=== PATIENT | male | born 1935 | race Caucasian/White ===

== ENCOUNTER → 2017-07-16 | Outpatient (CLI) | payer OTHER ==
[~2017-07-16] VITALS: Ht 170.2 cm; Wt 68.0 kg
[~2017-07-16] MED LIST: AMLO5TAB2 PO; ASPI325T8 PO; ATOR20TA58 PO; BISA10SU55 RC; CARV12.5 PO; GUAI118L3 PO; LIDOCAINE 1% / SOD BICARB 8.4% 20 ML VIAL. IJ ONE; MAGN400O7 PO; PRAV10TA2 PO; RAMI10CA PO
[2017-07-16 08:54] LABS: INR 1.1 (0.8-1.1); PROTHROMBIN TIME PATIENT 13.2 SEC (11.7-14.0)
[2017-07-16 08:58] VITALS: BP 120/78
--- NOTE | 2017-07-16 09:53 | RAD ---
Ultrasound-guided biopsy of left submandibular mass 07/16/2017 Indication: Left lingular mass possibly arising from the inferior parotid gland or submandibular gland. Adenopathy is also possible. Discussion: The risks and benefits of the procedure were discussed the patient. Informed consent was obtained. A timeout procedure was performed. The left neck was prepped and draped in sterile barrier technique. 1% lidocaine without epinephrine was demonstrated to the skin and subcutaneous tissues. Under direct ultrasound guidance 20-gauge biopsy needle was advanced to the mass. Multiple core biopsy samples were obtained and divided amongst formalin and RPMI fluid. Manual pressure was held. Sterile dressing was applied. No immediate complications were identified. Impression: Ultrasound-guided biopsy of left submandibular mass.
--- NOTE | 2017-07-23 16:30 | PATHOLOGY ---
PATHOLOGY REPORT * * * * * * * * FINAL DIAGNOSIS: Left neck mass needle biopsy: - DIFFUSE LARGE B-CELL LYMPHOMA. SEE COMMENT. COMMENT: Sections of the left neck mass needle biopsy reveal a malignant neoplasm. The malignant cells are present in solid nests and sheets. The malignant cells are relatively large and have modest amounts of eosinophilic cytoplasm. The malignant cells possess enlarged rounded, ovoid, and slightly irregular nuclei containing prominent nucleoli. There are scattered admixed small lymphocytes. Mitotic figures are present. There is no evidence of glandular or squamous differentiation. A portion of the biopsy is submitted for marker studies by flow cytometry and has a viability of 97.3%. Lymphocytes comprise 96.1% of total cells. T-cells comprise 28.3% of cells and show a CD4/CD8 ratio of 1.5. There is an abnormal population of monoclonal B-cells comprising 60% of cells positive for CD10, CD19, CD20 (predominant), CD23, CD11C (predominant) and showing surface lambda light chain restriction. There is no significant expression of CD5. A predominant large cell component is present by forward scatter features. To confirm flow cytometric findings and characterize the target cells in a tissue architectural context, a panel of immunohistochemical stains is performed and yields the following results: AE1/AE3: tumor cells negative S-100: tumor cells negative CD20: tumor cells positive CD3: tumor cells negative; population of scattered admixed small lymphocytes positive CD5: tumor cells negative; population of scattered admixed small lymphocytes positive CD10: tumor cells positive BCL2: tumor cells positive BCL6: tumor cells positive MUM1: tumor cells negative Cyclin D1: tumor lacks diffuse nuclear reactivity CD30: tumor cells negative Ki-67: tumor shows proliferation index of 50-70% The morphologic and immunophenotypic findings are 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 The case is also examined by Dr. Belen London, who concurs with the diagnosis. (JPM:/asim; 07/23/2017) Special Stains Performed: Immunoperoxidase stain for CD20, CD3, AE1/AE3, S-100 (A1), BCL1, BCL2, BCL6, MUM1, Ki-67, CD30, CD10 and CD5 REPORT ELECTRONICALLY SIGNED BY: Magnus Maldonado M.D. DATE/TIME: 07/23/2017 16:29 * * * * * * * * GROSS PATHOLOGY: The specimen is received in formalin, labeled "Emely Whitley, left neck mass," and consists of four artis needle core biopsies measuring between 0.3 x 0.1 x 0.1 cm and 1.1 x 0.1 x 0.1 cm. They are submitted in cassette A1. (SDY; 07/16/2017) INITIAL CPT CODE(S): A; 33989, 52073, 00406, 14237, 19697, 97119, 85918, 40871, 82331, 49160, 43754, 09956, 76456, 40607 Professional services [place] [place] [address] Technical services performed by [facility] at [address] [place] [address], [facility] [address] [place] [address]. Jeremi Taylor fax: [phone] SPECIMEN(S) RECEIVED: A.Left neck mass CLINICAL HISTORY: Left neck mass inferior and anterior to parotid measuring 3.5-4.0 cm. PATIENT: EMELY WHITLEY /AGE: 6 1935 (Age: 82) PATIENT #: [id number] ALT CASE #: SPECIMEN COLLECTION DATE: 07/16/2017 SPECIMEN RECEIVED DATE: 07/16/2017 [facility] - [address] [place] [address] - PHONE: [phone] * * * END OF REPORT * * *
== END | disposition home or self-care (01) ==
LOC: INTRAD 08:06
PROVIDERS: ATTEND Otolaryngology
DX: C85.81 Other specified types of non-Hodgkin lymphoma, lymph nodes of head, face, and neck (principal); K11.8 Other diseases of salivary glands; E78.00 Pure hypercholesterolemia, unspecified; I10 Essential (primary) hypertension; M19.91 Primary osteoarthritis, unspecified site; Z86.69 Personal history of other diseases of the nervous system and sense organs; Z87.39 Personal history of other diseases of the musculoskeletal system and connective tissue; Z86.14 Personal history of Methicillin resistant Staphylococcus aureus infection
CPT/HCPCS: 36415; 42400; 76942; 85610; 88184; 88185; 88305; 88341; 88342; 88360

== ENCOUNTER → 2017-08-07 | Outpatient (CLI) | payer OTHER ==
[2017-07-16 08:58] VITALS: BP 120/78
[~2017-08-07] MED LIST changes: -LIDOCAINE 1% / SOD BICARB 8.4% 20 ML VIAL. IJ ONE
--- NOTE | 2017-08-07 11:14 | RAD ---
Indication: B-cell lymphoma Technique: PET/CT utilized 13.8 millicuries F-18 FDG IV. Patient's blood glucose level at the time of exam was [address] was obtained for attenuation correction and correlative purposes, is not intended for interpretation separate from the PET imaging. Comparison is made to a CT cervical spine from August 13, 2013. One or more of the following individualized dose reduction techniques were utilized for this examination: 1. Automated exposure control 2. Adjustment of the mA and/or kV according to patient size 3. Use of iterative reconstruction technique Findings: Head and neck: There is uptake in the left palatine tonsil which is enlarged. SUV max is 38.6. There is also uptake along the left cervical chain within enlarged lymph nodes with SUV max 39.2. There are enlarged PET avid lymph nodes noted along the right cervical chain and right supraclavicular as well with SUV up to 11.4. Chest: Enlarged AP window lymph node has SUV max 4.5. Right hilar uptake SUV max is up to 3.0. Left hilar uptake is barely above background, SUV max 2.4. There is no axillary uptake. There is no abnormal uptake within the lung parenchyma. Uptake in the distal esophagus has SUV max 3.0. Abdomen/pelvis: There is heterogeneous uptake within the liver without definite discrete lesion. Somewhat nodular splenic uptake has SUV max up to 3.0, nonspecific. Mildly PET avid retroperitoneal lymph nodes are noted with SUV max 2.7. A larger retroperitoneal lymph node anterior to the inferior vena cava has SUV max of 9.4. There is uptake along the iliac vessels bilaterally, this uptake appears to be vascular as there is no definite adenopathy on the CT imaging to correspond to these areas of uptake. Musculoskeletal: Right hip uptake may be degenerative. Lower extremities were evaluated and there is no abnormal radiotracer accumulation. Non-PET findings: Craniotomy defect overlying the right frontal and temporal lobes is noted. There are degenerative changes throughout the spine. There is atheromatous disease. There is airway narrowing secondary to the enlarged left palatine tonsil. There are coronary artery calcifications. There is dependent atelectasis. Prostate is enlarged. Calcified phleboliths are noted in the pelvis. There are inguinal hernias containing bowel, greater on the right. Impression: 1. PET avid adenopathy noted within the neck, mediastinum, and retroperitoneum. Findings are compatible with the provided history of B-cell lymphoma. 2. Left palatine tonsillar uptake also compatible with the provided history of lymphoma.
== END | disposition home or self-care (01) ==
LOC: PETSC 07:34
PROVIDERS: ATTEND Otolaryngology
DX: C85.10 Unspecified B-cell lymphoma, unspecified site (principal); R59.0 Localized enlarged lymph nodes; Z85.79 Personal history of other malignant neoplasms of lymphoid, hematopoietic and related tissues
CPT/HCPCS: 78815; A9552

== ENCOUNTER 2017-08-08 15:20 | Inpatient (IN) | payer OTHER ==
[~2017-08-08] VITALS: Ht 170.2 cm; Wt 68.0 kg
--- NOTE | 2017-08-08 16:09 | PHYS DOC ---
Past Medical History Past Medical History: CVA, Hypertension, Other Additional Past Medical Histor: blind in right eye, benign prostatic hypertrophy, intercranial hemorrhage Past Surgical History: No Surgical History Alcohol Use: None Drug Use: None Adult General Chief Complaint Chief Complaint: SHORTNESS OF BREATH HPI HPI Patient is a 82 year old M who presents with increased shortness of breath and difficult swallowing. Approximately 2 weeks ago patient was recently diagnosed with lymphoma and had a PET scan done yesterday. Patient is met with ENT however they said there is nothing more they can do for the masses in the neck. Patient has no previous history of DVTs or PEs. Patient denies any fevers or chest pain. Patient has no other symptoms other than his shortness of breath that is worse when he gets up and walks and medical to swallowing secondary to the masses in his neck. Review of Systems Review of Systems GEN: Denies fevers, chills, sweats HEENT: Difficult swallowing CV: Denies chest pain RESP: Shortness of breath GI: Denies n/v/d NEURO: Denies confusion, dizziness MSK: Denies weakness, joint pain/swelling All other systems were reviewed and found to be within normal limits, except as documented in this note. Current Medications Current Medications Current Medications Medications (Trade) Dose Ordered Sig/Jolie Start Time Stop Time Status Last Admin Dose Admin Info (Do NOT chart on this entry -- for MONITORING) 1 each PRN DAILY PRN 08/08/17 16:45 08/10/17 16:44 Iohexol (Omnipaque 300 Mg/ml) 75 ml 1X ONCE 08/08/17 16:45 08/08/17 16:46 DC 08/08/17 17:41 75 ML Allergies Allergies Allergies Coded Allergies Type Severity Reaction Last Updated Verified No Known Drug Allergies 08/13/13 No Physical Exam Physical Exam GEN.: mild distress. Alert and oriented. HEENT: Head is normocephalic, atraumatic NECK: Supple, large mass to the left neck consistent with prior diagnosis of lymphoma LUNGS: CTAB. HEART: RRR, S1, S2 present. Peripheral pulses intact ABDOMEN: Soft, nontender. Positive bowel sounds. EXTREMITIES: Without any cyanosis. NEUROLOGIC: Normal speech, normal tone PSYCHIATRIC: Normal affect, normal mood. SKIN: No ulcerations Current Patient Data Vital Signs Vital Signs Date Time Temp Pulse Resp B/P (MAP) Pulse Ox O2 Delivery O2 Flow Rate FiO2 12/15/17 19:04 68 18 143/80 (101) 93 Room Air 08/08/17 15:57 98.1 98.1 Lab Values Laboratory Tests Test 08/08/17 16:29 White Blood Count 7.2 x10^3/uL (4.0-11.0) Red Blood Count 4.50 x10^6/uL (4.30-5.70) Hemoglobin 13.4 g/dL (13.0-17.5) Hematocrit 40.5 % (39.0-53.0) Mean Corpuscular Volume 90 fL (79-100) Mean Corpuscular Hemoglobin 30 pg (25-35) Mean Corpuscular Hemoglobin Concent 33 g/dL (31-37) Red Cell Distribution Width 14.5 % (11.5-14.5) Platelet Count 223 x10^3/uL (140-400) Neutrophils (%) (Auto) 56 % (31-73) Lymphocytes (%) (Auto) 26 % (24-48) Monocytes (%) (Auto) 13 % (0-9) H Eosinophils (%) (Auto) 4 % (0-3) H Basophils (%) (Auto) 1 % (0-3) Neutrophils # (Auto) 4.0 x10^3uL (1.8-7.7) Lymphocytes # (Auto) 1.9 x10^3/uL (1.0-4.8) Monocytes # (Auto) 0.9 x10^3/uL (0.0-1.1) Eosinophils # (Auto) 0.3 x10^3/uL (0.0-0.7) Basophils # (Auto) 0.1 x10^3/uL (0.0-0.2) Sodium Level 132 mmol/L (136-145) L Potassium Level 4.4 mmol/L (3.5-5.1) Chloride Level 97 mmol/L (98-107) L Carbon Dioxide Level 26 mmol/L (21-32) Anion Gap 9 (6-14) Blood Urea Nitrogen 27 mg/dL (8-26) H Creatinine 0.9 mg/dL (0.7-1.3) Estimated GFR (Cockcroft-Gault) 81.2 BUN/Creatinine Ratio 30 (6-20) H Glucose Level 101 mg/dL (70-99) H Calcium Level 8.5 mg/dL (8.5-10.1) Total Bilirubin 0.4 mg/dL (0.2-1.0) Aspartate Amino Transferase (AST) 22 U/L (15-37) Alanine Aminotransferase (ALT) 28 U/L (16-63) Alkaline Phosphatase 155 U/L (46-116) H Troponin I Quantitative < 0.017 ng/mL (0.000-0.055) Total Protein 6.3 g/dL (6.4-8.2) L Albumin 3.6 g/dL (3.4-5.0) Albumin/Globulin Ratio 1.3 (1.0-1.7) Laboratory Tests 08/08/17 16:29 Laboratory Tests 08/08/17 16:29 EKG EKG 1633: EKG shows normal sinus rhythm rate of 65 no STEMI[] Radiology/Procedures Radiology/Procedures CT scan of the neck without contrast IMPRESSION: 1. Moderate lymphadenopathy consistent with lymphoma. 2. Mass lymph node complex versus enlarged left palatine tonsil in the left oropharynx crosses the midline and causes narrowing of the airway. Clinical correlation suggested. CTA chest: Impression: 1. No evidence of pulmonary embolism. 2. Lymphadenopathy.[] Course & Med Decision Making Course & Med Decision Making Pertinent Labs and Imaging studies reviewed. (See chart for details) ED course: Patient was seen and examined emergency room basic blood work along with a CT scan of the neck without contrast and a CTA of the chest was ordered 1930: Discussed CC/HP/PMH with Dr. Portillo and recommends admit with oncology on consult. Dr. Portillo was comfortable keeping the patient at [facility] since patient has are seen ENT and they state they're is nothing they can do for the mass and recommended oncology 1940: Updated family on CT results and lab results and plan to admit for further evaluation and management. MDM: After reviewing the chart, CC/HPI/PMH, physical exam, [lab results], [ radiological results], I do not believe the patient has an acute PE however has newly diagnosed lymphoma with a large neck mass causing narrowing of the airway and esophagus. Patient be admitted for further evaluation and management. [] Dragon Disclaimer Dragon Disclaimer This electronic medical record was generated, in whole or in part, using a voice recognition dictation system. Departure Departure Impression: Primary Impression: Lymphoma of lymph nodes of neck Additional Impressions: Dysphagia Dyspnea Disposition: ADMITTED INPATIENT Admitting Physician: Emelina Portillo Condition: STABLE Referrals: CARMENZA BARR MD (PCP) Problem Qualifiers FIGUEROA BROWN DO Aug 08, 2017 16:09
[2017-08-08] MEDS ORDERED: IOHEXOL 300 MG/ML 100ML VIAL. IV ONE (16:45)
[2017-08-08] MEDS ORDERED: CONTRAST GIVEN MC PRN (16:45)
[2017-08-08 17:08] LABS: BASO # 0.1 x10^3/uL (0.0-0.2); BASO % 1 % (0-3); EOS % 4 % (0-3); HEMATOCRIT 40.5 % (39.0-53.0); HEMOGLOBIN 13.4 g/dL (13.0-17.5); LYMPH # 1.9 x10^3/uL (1.0-4.8); LYMPH % 26 % (24-48); MEAN CORPUSCULAR HEMOGLOBIN 30 pg (25-35); MEAN CORPUSCULAR HGB CONC 33 g/dL (31-37); MEAN CORPUSCULAR VOLUME 90 fL (79-100); MONO % 13 % (0-9); NEUT % 56 % (31-73); PLATELET COUNT 223 x10^3/uL (140-400); RED CELL DISTRIBUTION WIDTH 14.5 % (11.5-14.5); WHITE BLOOD COUNT 7.2 x10^3/uL (4.0-11.0)
[2017-08-08 17:19] LABS: CALCIUM 8.5 mg/dL (8.5-10.1); CREATININE 0.9 mg/dL (0.7-1.3); GFR 81.2; POTASSIUM 4.4 mmol/L (3.5-5.1)
[2017-08-08 17:26] LABS: ALBUMIN 3.6 g/dL (3.4-5.0); ALBUMIN/GLOBULIN RATIO 1.3 (1.0-1.7); TOTAL BILIRUBIN 0.4 mg/dL (0.2-1.0); TOTAL PROTEIN 6.3 g/dL (6.4-8.2)
--- NOTE | 2017-08-08 18:21 | RAD ---
CTA Chest with contrast: Clinical History: RECENT DX LYMPHOMA OF NECK AIRWAY COMPROMISED PER FAMILY. INJ 75ML OMNI 300 Shortness of breath. Axial helical images of the chest were obtained after the administration of 75 cc of Omni 300 and timed appropriately for a pulmonary arterial study. Conventional axial reconstruction was performed in addition to coronal, sagittal and bilateral oblique MIP (maximum intensity projection). This study was ordered to detect possible pulmonary embolism. There are no filling defects to suggest pulmonary embolism. The lungs and pleural margins are clear. There is a single mildly enlarged lymph node in the mediastinum. There are multiple moderately enlarged supra and infraclavicular lymph nodes bilaterally. The thoracic aorta appears normal. Impression: 1. No evidence of pulmonary embolism. 2. Lymphadenopathy. PQRS Compliance Statement: One or more of the following individualized dose reduction techniques were utilized for this examination: 1. Automated exposure control 2. Adjustment of the mA and/or kV according to patient size 3. Use of iterative reconstruction technique Electronically signed by: Peter Bill III, MD (08/08/2017 6:17 PM) [facility]
--- NOTE | 2017-08-08 19:07 | RAD ---
CT soft tissue without contrast HISTORY: Lymphoma and airway compromise Axial helical images and neck were obtained without contrast and axial coronal and sagittal reconstruction was performed. The epiglottis appears normal. There is multiple moderately enlarged lymph nodes in the neck bilaterally. There is a large mass lymph node complex which involves the left tonsil and measures 3.9 x 2.7 cm and extends across the midline causing narrowing of the airway. There is also a lymph node just medial to the left sternocleidomastoid muscle that measures 2.3 centers in short axis. There is no prevertebral soft tissue swelling. IMPRESSION: 1. Moderate lymphadenopathy consistent with lymphoma. 2. Mass lymph node complex versus enlarged left palatine tonsil in the left oropharynx crosses the midline and causes narrowing of the airway. Clinical correlation suggested. PQRS Compliance Statement: One or more of the following individualized dose reduction techniques were utilized for this examination: 1. Automated exposure control 2. Adjustment of the mA and/or kV according to patient size 3. Use of iterative reconstruction technique Electronically signed by: Peter Bill III, MD (08/08/2017 7:04 PM) [facility]
[2017-08-08] MEDS ORDERED: fentaNYL PF VIAL 100 MCG/2 ML VIAL IV PRN (20:00)
[2017-08-08] MEDS ORDERED: ONDANSETRON PF 4 MG/2 ML VIAL. IV PRN (20:00)
[2017-08-08] MEDS: IV NORMAL SALINE 1000ML BAG 1,000 ML IV SCH (20:31)
[2017-08-08 23:15] VITALS: BP 134/72
[2017-08-09 03:10] VITALS: BP 151/82
[2017-08-09 06:03] LABS: BASO % 1 % (0-3); EOS % 4 % (0-3); HEMATOCRIT 40.6 % (39.0-53.0); HEMOGLOBIN 13.4 g/dL (13.0-17.5); LYMPH # 1.7 x10^3/uL (1.0-4.8); LYMPH % 26 % (24-48); MEAN CORPUSCULAR HEMOGLOBIN 30 pg (25-35); MEAN CORPUSCULAR HGB CONC 33 g/dL (31-37); MEAN CORPUSCULAR VOLUME 90 fL (79-100); MONO % 13 % (0-9); NEUT % 56 % (31-73); PLATELET COUNT 226 x10^3/uL (140-400); RED BLOOD COUNT 4.54 x10^6/uL (4.30-5.70); RED CELL DISTRIBUTION WIDTH 14.1 % (11.5-14.5); WHITE BLOOD COUNT 6.4 x10^3/uL (4.0-11.0)
[2017-08-09 06:37] LABS: CALCIUM 8.5 mg/dL (8.5-10.1); CREATININE 0.8 mg/dL (0.7-1.3); POTASSIUM 3.8 mmol/L (3.5-5.1)
[2017-08-09] MEDS: IV NORMAL SALINE 1000ML BAG 1,000 ML IV SCH (06:49)
[2017-08-09 07:33] VITALS: BP 128/71
--- NOTE | 2017-08-09 08:29 | PDOC2 ---
CONSULT Date of Consult Date of Consult DATE: 08/09/17 TIME: 08:28 Reason for Consult Reason for Consult: lymphoma Identification/Chief Complaint Chief Complaint new lymphoma Problems: History of Present Illness Reason for Visit: 82 year old M who presents with increased shortness of breath and difficult swallowing. Approximately 2 weeks ago patient was recently diagnosed with lymphoma and had a PET scan done yesterday. Patient is met with ENT however they said there is nothing more they can do for the masses in the neck. Patient has no previous history of DVTs or PEs. Patient denies any fevers or chest pain. Patient has no other symptoms other than his shortness of breath that is worse when he gets up and walks and medical to swallowing secondary to the masses in his neck. Past Medical History Cardiovascular: HTN, Hyperlipidemia CENTRAL NERVOUS SYSTEM: CVA, Other GI: No pertinent hx Heme/Onc: No pertinent hx Hepatobiliary: No pertinent hx Psych: Other Rheumatologic: No pertinent hx Infectious disease: No pertinent hx Renal/: Benign prostatic enlarg. Endocrine: No pertinent hx Past Surgical History Past Surgical History: Hysterectomy Social History ALCOHOL: none Drugs: None Lives: Jail Domestic Violence: Neg Current Problem List Problem List Problems Medical Problems: (1) Dysphagia Status: Acute (2) Dyspnea Status: Acute (3) Lymphoma of lymph nodes of neck Status: Acute Current Medications Current Medications Current Medications Iohexol (Omnipaque 300 Mg/ml) 75 ml 1X ONCE IV Last administered on 17:41; Start 08/08/17 at 16:45; Stop 08/08/17 at 16:46; Status DC Info (Do NOT chart on this entry -- for MONITORING) 1 each PRN DAILY PRN MC SEE COMMENTS; Start 08/08/17 at 16:45; Stop 08/10/17 at 16:44 Ondansetron HCl (Zofran) 4 mg PRN Q8HRS PRN IV NAUSEA/VOMITING; Start at 20:00; Stop 08/09/17 at 19:59 Fentanyl Citrate (Fentanyl 2ml Vial) 50 mcg PRN Q1HR PRN IV PAIN; Start at 20:00; Stop 08/09/17 at 19:59 Sodium Chloride 1,000 ml @ 100 mls/hr Q10H IV Last administered on 08/09/17 06:49; Start 08/08/17 at 19:47; Stop 08/09/17 at 19:46 Active Scripts Active Reported Amlodipine Besylate 5 Mg Tablet 5 Mg PO DAILY Aspirin 325 Mg Tablet 1 Tab PO DAILY Atorvastatin Calcium 20 Mg Tablet 1 Tab PO HS Robitussin Cough-Cold Cf Liq (Guaifenesin/D-Methorphan Hb/Pe) 118 Ml Liquid 10 Ml PO Q4HRS PRN Ramipril 10 Mg Capsule 10 Mg PO DAILY Milk Of Magnesia (Magnesium Hydroxide) 400 Mg/5 Ml Oral.susp 400 Mg PO DAILY PRN Dulcolax (Bisacodyl) 10 Mg Supp.rect 10 Mg RC PRN Coreg (Carvedilol) 12.5 Mg Tablet 25 Mg PO BID Allergies Allergies: Coded Allergies: No Known Drug Allergies (Unverified , 08/13/13) ROS General: YES: Other (wt loss 5-10 lbs per pt) HEENT: YES: Vocal changes Hematological and Lymphatic: YES: Swollen Lymph Nodes Respiratory: YES: Shortness of breath Gastrointestinal: Yes Other (problems swallowing) Neurological: Yes Memory Loss Physical Exam General: Alert, No acute distress, Other (disoriented - thought it was 2013, but was aware of [facility] and that it was winter time) HEENT: Atraumatic, EOMI, Other (enlarged firm L>R neck nodes) Lungs: Clear to auscultation Heart: Regular rate Abdomen: Normal bowel sounds, No tenderness Extremities: No clubbing, No cyanosis Skin: No rashes Neuro: Other (nasally voice) Vitals VITALS Vital Signs Date Time Temp Pulse Resp B/P (MAP) Pulse Ox O2 Delivery O2 Flow Rate FiO2 08/09/17 07:33 97.7 90 20 128/71 (90) 94 Room Air 97.7 Labs Labs FINAL DIAGNOSIS: Left neck mass needle biopsy: - DIFFUSE LARGE B-CELL LYMPHOMA. SEE COMMENT. COMMENT: Sections of the left neck mass needle biopsy reveal a malignant neoplasm. The malignant cells are present in solid nests and sheets. The malignant cells are relatively large and have modest amounts of eosinophilic cytoplasm. The malignant cells possess enlarged rounded, ovoid, and slightly irregular nuclei containing prominent nucleoli. There are scattered admixed small lymphocytes. Mitotic figures are present. There is no evidence of glandular or squamous differentiation. A portion of the biopsy is submitted for marker studies by flow cytometry and has a viability of 97.3%. Lymphocytes comprise 96.1% of total cells. T-cells comprise 28.3% of cells and show a CD4/CD8 ratio of 1.5. There is an abnormal population of monoclonal B-cells comprising 60% of cells positive for CD10, CD19, CD20 (predominant), CD23, CD11C (predominant) and showing surface lambda light chain restriction. There is no significant expression of CD5. A predominant large cell component is present by forward scatter features. To confirm flow cytometric findings and characterize the target cells in a tissue architectural context, a panel of immunohistochemical stains is performed and yields the following results: AE1/AE3: tumor cells negative S-100: tumor cells negative CD20: tumor cells positive CD3: tumor cells negative; population of scattered admixed small lymphocytes positive CD5: tumor cells negative; population of scattered admixed small lymphocytes positive CD10: tumor cells positive BCL2: tumor cells positive BCL6: tumor cells positive MUM1: tumor cells negative Cyclin D1: tumor lacks diffuse nuclear reactivity CD30: tumor cells negative Ki-67: tumor shows proliferation index of 50-70% The morphologic and immunophenotypic findings are 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 The case is also examined by Dr. Belen London, who concurs with the diagnosis. (JPM:/asim; 07/23/2017) Special Stains Performed: Immunoperoxidase stain for CD20, CD3, AE1/AE3, S-100 (A1), BCL1, BCL2, BCL6, MUM1, Ki-67, CD30, CD10 and CD5 REPORT ELECTRONICALLY SIGNED BY: Magnus Maldonado M.D. Laboratory Tests Test 08/08/17 16:29 08/09/17 05:15 White Blood Count 7.2 x10^3/uL (4.0-11.0) 6.4 x10^3/uL (4.0-11.0) Red Blood Count 4.50 x10^6/uL (4.30-5.70) 4.54 x10^6/uL (4.30-5.70) Hemoglobin 13.4 g/dL (13.0-17.5) 13.4 g/dL (13.0-17.5) Hematocrit 40.5 % (39.0-53.0) 40.6 % (39.0-53.0) Mean Corpuscular Volume 90 fL (79-100) 90 fL (79-100) Mean Corpuscular Hemoglobin 30 pg (25-35) 30 pg (25-35) Mean Corpuscular Hemoglobin Concent 33 g/dL (31-37) 33 g/dL (31-37) Red Cell Distribution Width 14.5 % (11.5-14.5) 14.1 % (11.5-14.5) Platelet Count 223 x10^3/uL (140-400) 226 x10^3/uL (140-400) Neutrophils (%) (Auto) 56 % (31-73) 56 % (31-73) Lymphocytes (%) (Auto) 26 % (24-48) 26 % (24-48) Monocytes (%) (Auto) 13 % (0-9) 13 % (0-9) Eosinophils (%) (Auto) 4 % (0-3) 4 % (0-3) Basophils (%) (Auto) 1 % (0-3) 1 % (0-3) Neutrophils # (Auto) 4.0 x10^3uL (1.8-7.7) 3.6 x10^3uL (1.8-7.7) Lymphocytes # (Auto) 1.9 x10^3/uL (1.0-4.8) 1.7 x10^3/uL (1.0-4.8) Monocytes # (Auto) 0.9 x10^3/uL (0.0-1.1) 0.8 x10^3/uL (0.0-1.1) Eosinophils # (Auto) 0.3 x10^3/uL (0.0-0.7) 0.2 x10^3/uL (0.0-0.7) Basophils # (Auto) 0.1 x10^3/uL (0.0-0.2) 0.0 x10^3/uL (0.0-0.2) Sodium Level 132 mmol/L (136-145) 133 mmol/L (136-145) Potassium Level 4.4 mmol/L (3.5-5.1) 3.8 mmol/L (3.5-5.1) Chloride Level 97 mmol/L (98-107) 99 mmol/L (98-107) Carbon Dioxide Level 26 mmol/L (21-32) 25 mmol/L (21-32) Anion Gap 9 (6-14) 9 (6-14) Blood Urea Nitrogen 27 mg/dL (8-26) 15 mg/dL (8-26) Creatinine 0.9 mg/dL (0.7-1.3) 0.8 mg/dL (0.7-1.3) Estimated GFR (Cockcroft-Gault) 81.2 93.0 BUN/Creatinine Ratio 30 (6-20) Glucose Level 101 mg/dL (70-99) 100 mg/dL (70-99) Calcium Level 8.5 mg/dL (8.5-10.1) 8.5 mg/dL (8.5-10.1) Total Bilirubin 0.4 mg/dL (0.2-1.0) Aspartate Amino Transf (AST/SGOT) 22 U/L (15-37) Alanine Aminotransferase (ALT/SGPT) 28 U/L (16-63) Alkaline Phosphatase 155 U/L (46-116) Troponin I Quantitative < 0.017 ng/mL (0.000-0.055) Total Protein 6.3 g/dL (6.4-8.2) Albumin 3.6 g/dL (3.4-5.0) Albumin/Globulin Ratio 1.3 (1.0-1.7) Laboratory Tests Test 08/08/17 16:29 08/09/17 05:15 White Blood Count 7.2 x10^3/uL (4.0-11.0) 6.4 x10^3/uL (4.0-11.0) Red Blood Count 4.50 x10^6/uL (4.30-5.70) 4.54 x10^6/uL (4.30-5.70) Hemoglobin 13.4 g/dL (13.0-17.5) 13.4 g/dL (13.0-17.5) Hematocrit 40.5 % (39.0-53.0) 40.6 % (39.0-53.0) Mean Corpuscular Volume 90 fL (79-100) 90 fL (79-100) Mean Corpuscular Hemoglobin 30 pg (25-35) 30 pg (25-35) Mean Corpuscular Hemoglobin Concent 33 g/dL (31-37) 33 g/dL (31-37) Red Cell Distribution Width 14.5 % (11.5-14.5) 14.1 % (11.5-14.5) Platelet Count 223 x10^3/uL (140-400) 226 x10^3/uL (140-400) Neutrophils (%) (Auto) 56 % (31-73) 56 % (31-73) Lymphocytes (%) (Auto) 26 % (24-48) 26 % (24-48) Monocytes (%) (Auto) 13 % (0-9) 13 % (0-9) Eosinophils (%) (Auto) 4 % (0-3) 4 % (0-3) Basophils (%) (Auto) 1 % (0-3) 1 % (0-3) Neutrophils # (Auto) 4.0 x10^3uL (1.8-7.7) 3.6 x10^3uL (1.8-7.7) Lymphocytes # (Auto) 1.9 x10^3/uL (1.0-4.8) 1.7 x10^3/uL (1.0-4.8) Monocytes # (Auto) 0.9 x10^3/uL (0.0-1.1) 0.8 x10^3/uL (0.0-1.1) Eosinophils # (Auto) 0.3 x10^3/uL (0.0-0.7) 0.2 x10^3/uL (0.0-0.7) Basophils # (Auto) 0.1 x10^3/uL (0.0-0.2) 0.0 x10^3/uL (0.0-0.2) Sodium Level 132 mmol/L (136-145) 133 mmol/L (136-145) Potassium Level 4.4 mmol/L (3.5-5.1) 3.8 mmol/L (3.5-5.1) Chloride Level 97 mmol/L (98-107) 99 mmol/L (98-107) Carbon Dioxide Level 26 mmol/L (21-32) 25 mmol/L (21-32) Anion Gap 9 (6-14) 9 (6-14) Blood Urea Nitrogen 27 mg/dL (8-26) 15 mg/dL (8-26) Creatinine 0.9 mg/dL (0.7-1.3) 0.8 mg/dL (0.7-1.3) Estimated GFR (Cockcroft-Gault) 81.2 93.0 BUN/Creatinine Ratio 30 (6-20) Glucose Level 101 mg/dL (70-99) 100 mg/dL (70-99) Calcium Level 8.5 mg/dL (8.5-10.1) 8.5 mg/dL (8.5-10.1) Total Bilirubin 0.4 mg/dL (0.2-1.0) Aspartate Amino Transf (AST/SGOT) 22 U/L (15-37) Alanine Aminotransferase (ALT/SGPT) 28 U/L (16-63) Alkaline Phosphatase 155 U/L (46-116) Troponin I Quantitative < 0.017 ng/mL (0.000-0.055) Total Protein 6.3 g/dL (6.4-8.2) Albumin 3.6 g/dL (3.4-5.0) Albumin/Globulin Ratio 1.3 (1.0-1.7) Images Images PET scan done recently - but pt does not remember where Assessment/Plan Assessment/Plan 82 yo M in nursing facility, hx of HTN, dyslipidemia, stroke with some mild disorientation, with new diagnosis of DLBCL. I have placed a call into son Spencer and asked him to call me. We need records of recent PET scan to know how to stage this, but it will also be imperative to know how aggressive we should be in his care. In the meantime, we will start prednisone 100mg daily for anti-lymphoma properties. Consider adding at least Rituxan too in the near future, once I establish goals with son. ZAIDA WELCH MD Aug 09, 2017 08:29
[2017-08-09] MEDS ORDERED: guaiFENesin DM 200MG/20MG 10 ML SYRUP PO PRN (09:00)
--- NOTE | 2017-08-09 09:22 | PDOC1 ---
History and Physical Date of Admission Date of Admission DATE: 08/09/17 TIME: 09:17 Identification/Chief Complaint Chief Complaint dysphagia Problems: Source Source: Chart review, Patient History of Present Illness History of Present Illness Mr. Montero, is an 82 year old M - who has lived at [facility] for the past 4 years due to weakness and mild dementia. New complaint of difficulty swallowing , He presents with some increased shortness of breath also. Per ER history, 2 weeks ago patient was recently diagnosed with lymphoma and had a PET scan done yesterday. He has seen a doctor recently, but cannot remember the name Patient has no previous history of DVTs or PEs. Past Medical History Cardiovascular: HTN, Hyperlipidemia CENTRAL NERVOUS SYSTEM: CVA, Other GI: No pertinent hx Heme/Onc: No pertinent hx Hepatobiliary: No pertinent hx Psych: Other Rheumatologic: No pertinent hx Infectious disease: No pertinent hx Renal/: Benign prostatic enlarg. Endocrine: No pertinent hx Past Surgical History Past Surgical History: Hysterectomy Family History Family History: Family History Unknown Social History Smoke: No ALCOHOL: none Drugs: None Current Problem List Problem List Problems Medical Problems: (1) Dysphagia Status: Acute (2) Dyspnea Status: Acute (3) Lymphoma of lymph nodes of neck Status: Acute Problems: Current Medications Current Medications Current Medications Iohexol (Omnipaque 300 Mg/ml) 75 ml 1X ONCE IV Last administered on 17:41; Start 08/08/17 at 16:45; Stop 08/08/17 at 16:46; Status DC Info (Do NOT chart on this entry -- for MONITORING) 1 each PRN DAILY PRN MC SEE COMMENTS; Start 08/08/17 at 16:45; Stop 08/10/17 at 16:44 Ondansetron HCl (Zofran) 4 mg PRN Q8HRS PRN IV NAUSEA/VOMITING; Start at 20:00; Stop 08/09/17 at 19:59 Fentanyl Citrate (Fentanyl 2ml Vial) 50 mcg PRN Q1HR PRN IV PAIN; Start at 20:00; Stop 08/09/17 at 19:59 Sodium Chloride 1,000 ml @ 100 mls/hr Q10H IV Last administered on 08/09/17 06:49; Start 08/08/17 at 19:47; Stop 08/09/17 at 08:50; Status DC Amlodipine Besylate (Norvasc) 5 mg DAILY PO ; Start 08/09/17 at 09:30 Aspirin (Jose Aspirin) 325 mg DAILY PO ; Start 08/09/17 at 09:30 Atorvastatin Calcium (Lipitor) 20 mg HS PO ; Start 08/09/17 at 21:00 Carvedilol (Coreg) 25 mg BIDWMEALS PO ; Start 08/09/17 at 09:30 Guaifenesin (Robitussin Dm) 10 ml PRN Q6HRS PRN PO COUGH; Start 08/09/17 at 09 :00 Enoxaparin Sodium (Lovenox Per Pharmacy Prophylaxis Dosing) 1 each PRN DAILY PRN MC SEE COMMENTS; Start 08/09/17 at 09:00 Potassium Chloride/Dextrose/ Sod Cl 1,000 ml @ 100 mls/hr Q10H IV ; Start at 09:30 Enoxaparin Sodium (Lovenox 40mg Syringe) 40 mg Q24H SQ ; Start 08/09/17 at 09: 00 Active Scripts Active Reported Amlodipine Besylate 5 Mg Tablet 5 Mg PO DAILY Aspirin 325 Mg Tablet 1 Tab PO DAILY Atorvastatin Calcium 20 Mg Tablet 1 Tab PO HS Robitussin Cough-Cold Cf Liq (Guaifenesin/D-Methorphan Hb/Pe) 118 Ml Liquid 10 Ml PO Q4HRS PRN Ramipril 10 Mg Capsule 10 Mg PO DAILY Milk Of Magnesia (Magnesium Hydroxide) 400 Mg/5 Ml Oral.susp 400 Mg PO DAILY PRN Dulcolax (Bisacodyl) 10 Mg Supp.rect 10 Mg RC PRN Coreg (Carvedilol) 12.5 Mg Tablet 25 Mg PO BID Allergies Allergies: Coded Allergies: No Known Drug Allergies (Unverified , 08/13/13) ROS General: No: Chills, Night Sweats, Fatigue, Malaise, Appetite, Other PSYCHOLOGICAL ROS: No: Anxiety, Behavioral Disorder, Concentration difficultie , Decreased libido, Depression, Disorientation, Hallucinations, Hostility, Irritablity, Memory difficulties, Mood Swings, Obsessive thoughts, Physical abuse, Sexual abuse, Sleep disturbances, Suicidal ideation, Other Eyes: Yes Other, No Blurry vision, No Decreased vision, No Double vision, No Dry eyes, No Excessive tearing, No Eye Pain, No Itchy Eyes, No Loss of vision, No Photophobia , No Scotomata, No Uses contacts, No Uses glasses HEENT: YES: Other (neck fullness, like something stuck under his tongue), No: Heacaches, Visual Changes, Hearing change, Nasal congestion, Nasal discharge, Oral lesions, Sinus pain, Sore Throat, Epistaxis, Sneezing, Snoring, Tinnitus, Vertigo, Vocal changes Respiratory: No: Cough, Hemoptysis, Orthopnea, Pleuritic Pain, Shortness of breath, SOB with excertion, Sputum Changes, Stridor, Tachypnea, Wheezing, Other Cardiovascular: No Chest Pain, No Palpitations, No Orthopnea, No Paroxysmal Noc. Dyspnea, No Edema, No Lt Headedness, No Other Gastrointestinal: No Nausea, No Vomiting, No Abdominal Pain, No Diarrhea, No Constipation, No Melena, No Hematochezia, No Other Genitourinary: No Dysuria, No Frequency, No Incontinence, No Hematuria, No Retention, No Discharge, No Urgency, No Pain, No Flank Pain, No Other, No , No , No , No , No , No , No Musculoskeletal: No Gait Disturbance, No Joint Pain, No Joint Stiffness, No Joint Swelling, No Muscle Pain, No Muscular Weakness, No Pain In:, No Swelling In:, No Other Neurological: No Behavorial Changes, No Bowel/Bladder ControlChng, No Confusion , No Dizziness, No Gait Disturbance, No Headaches, No Impaired Coord/balance, No Memory Loss, No Numbness/Tingling, No Seizures, No Speech Problems, No Tremors, No Visual Changes, No Weakness, No Other Skin: No Dry Skin, No Eczema, No Hair Changes, No Lumps, No Mole Changes, No Mottling, No Nail Changes, No Pruritus, No Rash, No Skin Lesion Changes, No Other, No Acne Physical Exam General: Alert, Oriented X3, Cooperative, No acute distress HEENT: EOMI, Other (neck swollen on left, weak swallow effort) Lungs: Clear to auscultation, Normal air movement Heart: no gallops, no murmurs Abdomen: Normal bowel sounds Male Genitals Exam: normal genitalia Rectal Exam: not examined Extremities: No cyanosis, No edema Skin: No rashes, No breakdown Neuro: Normal speech, Sensation intact Psych/Mental Status: Mood NL Vitals Vitals Vital Signs Date Time Temp Pulse Resp B/P (MAP) Pulse Ox O2 Delivery O2 Flow Rate FiO2 08/09/17 07:33 97.7 90 20 128/71 (90) 94 Room Air 97.7 Labs Labs Laboratory Tests Test 08/08/17 16:29 08/09/17 05:15 White Blood Count 7.2 x10^3/uL (4.0-11.0) 6.4 x10^3/uL (4.0-11.0) Red Blood Count 4.50 x10^6/uL (4.30-5.70) 4.54 x10^6/uL (4.30-5.70) Hemoglobin 13.4 g/dL (13.0-17.5) 13.4 g/dL (13.0-17.5) Hematocrit 40.5 % (39.0-53.0) 40.6 % (39.0-53.0) Mean Corpuscular Volume 90 fL (79-100) 90 fL (79-100) Mean Corpuscular Hemoglobin 30 pg (25-35) 30 pg (25-35) Mean Corpuscular Hemoglobin Concent 33 g/dL (31-37) 33 g/dL (31-37) Red Cell Distribution Width 14.5 % (11.5-14.5) 14.1 % (11.5-14.5) Platelet Count 223 x10^3/uL (140-400) 226 x10^3/uL (140-400) Neutrophils (%) (Auto) 56 % (31-73) 56 % (31-73) Lymphocytes (%) (Auto) 26 % (24-48) 26 % (24-48) Monocytes (%) (Auto) 13 % (0-9) 13 % (0-9) Eosinophils (%) (Auto) 4 % (0-3) 4 % (0-3) Basophils (%) (Auto) 1 % (0-3) 1 % (0-3) Neutrophils # (Auto) 4.0 x10^3uL (1.8-7.7) 3.6 x10^3uL (1.8-7.7) Lymphocytes # (Auto) 1.9 x10^3/uL (1.0-4.8) 1.7 x10^3/uL (1.0-4.8) Monocytes # (Auto) 0.9 x10^3/uL (0.0-1.1) 0.8 x10^3/uL (0.0-1.1) Eosinophils # (Auto) 0.3 x10^3/uL (0.0-0.7) 0.2 x10^3/uL (0.0-0.7) Basophils # (Auto) 0.1 x10^3/uL (0.0-0.2) 0.0 x10^3/uL (0.0-0.2) Sodium Level 132 mmol/L (136-145) 133 mmol/L (136-145) Potassium Level 4.4 mmol/L (3.5-5.1) 3.8 mmol/L (3.5-5.1) Chloride Level 97 mmol/L (98-107) 99 mmol/L (98-107) Carbon Dioxide Level 26 mmol/L (21-32) 25 mmol/L (21-32) Anion Gap 9 (6-14) 9 (6-14) Blood Urea Nitrogen 27 mg/dL (8-26) 15 mg/dL (8-26) Creatinine 0.9 mg/dL (0.7-1.3) 0.8 mg/dL (0.7-1.3) Estimated GFR (Cockcroft-Gault) 81.2 93.0 BUN/Creatinine Ratio 30 (6-20) Glucose Level 101 mg/dL (70-99) 100 mg/dL (70-99) Calcium Level 8.5 mg/dL (8.5-10.1) 8.5 mg/dL (8.5-10.1) Total Bilirubin 0.4 mg/dL (0.2-1.0) Aspartate Amino Transf (AST/SGOT) 22 U/L (15-37) Alanine Aminotransferase (ALT/SGPT) 28 U/L (16-63) Alkaline Phosphatase 155 U/L (46-116) Troponin I Quantitative < 0.017 ng/mL (0.000-0.055) Total Protein 6.3 g/dL (6.4-8.2) Albumin 3.6 g/dL (3.4-5.0) Albumin/Globulin Ratio 1.3 (1.0-1.7) Laboratory Tests Test 08/08/17 16:29 08/09/17 05:15 White Blood Count 7.2 x10^3/uL (4.0-11.0) 6.4 x10^3/uL (4.0-11.0) Red Blood Count 4.50 x10^6/uL (4.30-5.70) 4.54 x10^6/uL (4.30-5.70) Hemoglobin 13.4 g/dL (13.0-17.5) 13.4 g/dL (13.0-17.5) Hematocrit 40.5 % (39.0-53.0) 40.6 % (39.0-53.0) Mean Corpuscular Volume 90 fL (79-100) 90 fL (79-100) Mean Corpuscular Hemoglobin 30 pg (25-35) 30 pg (25-35) Mean Corpuscular Hemoglobin Concent 33 g/dL (31-37) 33 g/dL (31-37) Red Cell Distribution Width 14.5 % (11.5-14.5) 14.1 % (11.5-14.5) Platelet Count 223 x10^3/uL (140-400) 226 x10^3/uL (140-400) Neutrophils (%) (Auto) 56 % (31-73) 56 % (31-73) Lymphocytes (%) (Auto) 26 % (24-48) 26 % (24-48) Monocytes (%) (Auto) 13 % (0-9) 13 % (0-9) Eosinophils (%) (Auto) 4 % (0-3) 4 % (0-3) Basophils (%) (Auto) 1 % (0-3) 1 % (0-3) Neutrophils # (Auto) 4.0 x10^3uL (1.8-7.7) 3.6 x10^3uL (1.8-7.7) Lymphocytes # (Auto) 1.9 x10^3/uL (1.0-4.8) 1.7 x10^3/uL (1.0-4.8) Monocytes # (Auto) 0.9 x10^3/uL (0.0-1.1) 0.8 x10^3/uL (0.0-1.1) Eosinophils # (Auto) 0.3 x10^3/uL (0.0-0.7) 0.2 x10^3/uL (0.0-0.7) Basophils # (Auto) 0.1 x10^3/uL (0.0-0.2) 0.0 x10^3/uL (0.0-0.2) Sodium Level 132 mmol/L (136-145) 133 mmol/L (136-145) Potassium Level 4.4 mmol/L (3.5-5.1) 3.8 mmol/L (3.5-5.1) Chloride Level 97 mmol/L (98-107) 99 mmol/L (98-107) Carbon Dioxide Level 26 mmol/L (21-32) 25 mmol/L (21-32) Anion Gap 9 (6-14) 9 (6-14) Blood Urea Nitrogen 27 mg/dL (8-26) 15 mg/dL (8-26) Creatinine 0.9 mg/dL (0.7-1.3) 0.8 mg/dL (0.7-1.3) Estimated GFR (Cockcroft-Gault) 81.2 93.0 BUN/Creatinine Ratio 30 (6-20) Glucose Level 101 mg/dL (70-99) 100 mg/dL (70-99) Calcium Level 8.5 mg/dL (8.5-10.1) 8.5 mg/dL (8.5-10.1) Total Bilirubin 0.4 mg/dL (0.2-1.0) Aspartate Amino Transf (AST/SGOT) 22 U/L (15-37) Alanine Aminotransferase (ALT/SGPT) 28 U/L (16-63) Alkaline Phosphatase 155 U/L (46-116) Troponin I Quantitative < 0.017 ng/mL (0.000-0.055) Total Protein 6.3 g/dL (6.4-8.2) Albumin 3.6 g/dL (3.4-5.0) Albumin/Globulin Ratio 1.3 (1.0-1.7) VTE Prophylaxis Ordered VTE Prophylaxis Devices: No VTE Pharmacological Prophylaxi: Yes Assessment/Plan Assessment/Plan neck pain and swelling dysphagia Lymphoma, neck dementia, mild, in longterm care, weakness, walks with a cane or walker, htn BLANCO,DAWSON W MD Aug 09, 2017 09:22
--- NOTE | 2017-08-09 11:18 | EKG ---
[facility] [address] [place] [address] Test Date: 2017-08-08 Test Time: 16:22:45 Pat Name: EMELY WHITLEY Department: Room: 2 1 Gender: M [employer]: : 1935 Requested By: FIGUEROA BROWN Order Number: [id number] Reading MD: Jaden Lewis Measurements Intervals [place] Rate: 65 P: 41 SD: 174 QRS: -15 QRSD: 94 T: -3 QT: 374 QTc: 394 Interpretive Statements SINUS RHYTHM LEFTWARD AXIS LOW LIMB LEAD VOLTAGE NO SPECIFIC ECG ABNORMALITIES RI6.01 Compared to ECG 08/13/2013 18:00:14 Left-axis deviation now present Electronically Signed On 08-22-2017 10:25:07 BEZEL CUTTER by Jaden Lewis
[2017-08-09 11:37] VITALS: BP 146/91
[2017-08-09] MEDS: predniSONE 20 MG TABLET PO SCH (11:42)
[2017-08-09] MEDS: amLODIPine BESYLATE 5 MG TABLET PO SCH (11:43)
[2017-08-09] MEDS: ASPIRIN 325 MG TABLET PO SCH (11:43)
[2017-08-09] MEDS: CARVEDILOL 12.5 MG TABLET. PO SCH ×2 (11:44→17:28)
[2017-08-09] MEDS: ENOXAPARIN 40 MG/0.4 ML SYRINGE. SQ SCH (11:45)
[2017-08-09 15:38] VITALS: BP 128/74
[2017-08-09] MEDS: POTASSIUM CL 20MEQ D5-0.45NACL 1,000 ML IV SCH ×2 (17:30→19:30)
[2017-08-09 19:00] VITALS: BP 120/80
[2017-08-09] MEDS: ATORVASTATIN CALCIUM 20 MG TABLET PO SCH (20:54)
[2017-08-09 23:00] VITALS: BP 131/71
[2017-08-10 03:00] VITALS: BP 116/68
[2017-08-10] MEDS: POTASSIUM CL 20MEQ D5-0.45NACL 1,000 ML IV SCH ×3 (05:30→22:27)
[2017-08-10 07:00] VITALS: BP 117/62
--- NOTE | 2017-08-10 09:52 | PDOC ---
SUBJECTIVE Subjective Family meeting this morning with son Spencer and daughter Pallavi in attendance. OBJECTIVE Vital Signs Vital Signs Date Time Temp Pulse Resp B/P (MAP) Pulse Ox O2 Delivery O2 Flow Rate FiO2 08/10/17 07:00 97.5 63 20 117/62 (80) 93 Room Air 97.5 08/10/17 03:00 97.9 72 18 116/68 (84) 96 Room Air 97.9 08/09/17 23:00 96.2 73 17 131/71 (91) 98 Room Air 96.2 08/09/17 20:00 Room Air 08/09/17 19:00 97.9 71 14 120/80 (93) 96 Room Air 97.9 08/09/17 17:28 86 128/74 08/09/17 15:38 98.0 86 19 128/74 (92) 96 Room Air 98.0 08/09/17 11:44 109 146/91 08/09/17 11:43 109 146/91 08/09/17 11:37 98.2 109 19 146/91 (109) 95 Room Air 98.2 I & O Intake and Output 08/10/17 07:00 Intake Total 360 ml Balance 360 ml Intake Oral 360 ml # Voids 6 # Bowel Movements 1 PHYSICAL EXAM Physical Exam alert and more oriented today R wrist splint with R sided weakness Interactive and cooperative with meeting ASSESSMENT/PLAN Assessment/Plan 82 yo M c 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 Discussion was had about epidemiology, risk factors, staging and prognosis, as wella s subsequent treatment strategies involving aggressive 5-drug chemo regimen R-[facility]OP. Due to clinical status and pt wishes, he has chosen to not pursue therapy, and look to hospice approach with [facility]. He will need a more stable living situation now, as he is in an independent facility - he will need 24 hr nursing care, as even basic daily needs are becoming a challenge. Therefore, dispo is going to be based on where he can move to (24-hr nursing), and have hospice care involved ([facility]). The family and him were suggesting either [facility] (the nursing facility there) or [facility], as they have had good experiences at both. 45 minutes were spent [id number] talking with pt and family about options. Discussed various things, including end-of-life wishes. He is now DNAR. Will sign off now. Thanks for the consult. Problems: ZAIDA WELCH MD Aug 10, 2017 09:52
[2017-08-10] MEDS: amLODIPine BESYLATE 5 MG TABLET PO SCH (10:07)
[2017-08-10] MEDS: ASPIRIN 325 MG TABLET PO SCH (10:07)
[2017-08-10] MEDS: ENOXAPARIN 40 MG/0.4 ML SYRINGE. SQ SCH (10:08)
[2017-08-10] MEDS: predniSONE 20 MG TABLET PO SCH (10:08)
[2017-08-10] MEDS: CARVEDILOL 12.5 MG TABLET. PO SCH ×2 (10:12→16:57)
[2017-08-10 11:00] VITALS: BP 121/70
--- NOTE | 2017-08-10 13:34 | PDOC ---
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 R-CHOP chemo offered by Onc service, pt declined, prefer to use [facility]. may need 24 hr nursing care, Vitals Vitals Vital Signs Date Time Temp Pulse Resp B/P (MAP) Pulse Ox O2 Delivery O2 Flow Rate FiO2 08/10/17 11:00 98.1 61 20 121/70 (87) 97 Room Air 98.1 Physical Exam General: Alert, No acute distress, Other (disoriented - thought it was 2013, but was aware of Pres Trump and that it was winter time) Heart: Regular rate Lungs: Clear Abdomen: Normal bowel sounds, No tenderness Extremities: No clubbing, No cyanosis Skin: No rashes Review of Systems Review of Systems weakness Assessment and Plan Assessmemt and Plan Problems Medical Problems: (1) Dysphagia Status: Acute (2) Dyspnea Status: Acute (3) Lymphoma of lymph nodes of neck Status: Acute Problems: Comment Review of Relevant I have reviewed the following items bjorn (where applicable) has been applied. Labs Laboratory Tests Test 08/08/17 16:29 08/09/17 05:15 08/09/17 06:15 White Blood Count 7.2 x10^3/uL (4.0-11.0) 6.4 x10^3/uL (4.0-11.0) Red Blood Count 4.50 x10^6/uL (4.30-5.70) 4.54 x10^6/uL (4.30-5.70) Hemoglobin 13.4 g/dL (13.0-17.5) 13.4 g/dL (13.0-17.5) Hematocrit 40.5 % (39.0-53.0) 40.6 % (39.0-53.0) Mean Corpuscular Volume 90 fL (79-100) 90 fL (79-100) Mean Corpuscular Hemoglobin 30 pg (25-35) 30 pg (25-35) Mean Corpuscular Hemoglobin Concent 33 g/dL (31-37) 33 g/dL (31-37) Red Cell Distribution Width 14.5 % (11.5-14.5) 14.1 % (11.5-14.5) Platelet Count 223 x10^3/uL (140-400) 226 x10^3/uL (140-400) Neutrophils (%) (Auto) 56 % (31-73) 56 % (31-73) Lymphocytes (%) (Auto) 26 % (24-48) 26 % (24-48) Monocytes (%) (Auto) 13 % (0-9) 13 % (0-9) Eosinophils (%) (Auto) 4 % (0-3) 4 % (0-3) Basophils (%) (Auto) 1 % (0-3) 1 % (0-3) Neutrophils # (Auto) 4.0 x10^3uL (1.8-7.7) 3.6 x10^3uL (1.8-7.7) Lymphocytes # (Auto) 1.9 x10^3/uL (1.0-4.8) 1.7 x10^3/uL (1.0-4.8) Monocytes # (Auto) 0.9 x10^3/uL (0.0-1.1) 0.8 x10^3/uL (0.0-1.1) Eosinophils # (Auto) 0.3 x10^3/uL (0.0-0.7) 0.2 x10^3/uL (0.0-0.7) Basophils # (Auto) 0.1 x10^3/uL (0.0-0.2) 0.0 x10^3/uL (0.0-0.2) Sodium Level 132 mmol/L (136-145) 133 mmol/L (136-145) Potassium Level 4.4 mmol/L (3.5-5.1) 3.8 mmol/L (3.5-5.1) Chloride Level 97 mmol/L (98-107) 99 mmol/L (98-107) Carbon Dioxide Level 26 mmol/L (21-32) 25 mmol/L (21-32) Anion Gap 9 (6-14) 9 (6-14) Blood Urea Nitrogen 27 mg/dL (8-26) 15 mg/dL (8-26) Creatinine 0.9 mg/dL (0.7-1.3) 0.8 mg/dL (0.7-1.3) Estimated GFR (Cockcroft-Gault) 81.2 93.0 BUN/Creatinine Ratio 30 (6-20) Glucose Level 101 mg/dL (70-99) 100 mg/dL (70-99) Calcium Level 8.5 mg/dL (8.5-10.1) 8.5 mg/dL (8.5-10.1) Total Bilirubin 0.4 mg/dL (0.2-1.0) Aspartate Amino Transf (AST/SGOT) 22 U/L (15-37) Alanine Aminotransferase (ALT/SGPT) 28 U/L (16-63) Alkaline Phosphatase 155 U/L (46-116) Troponin I Quantitative < 0.017 ng/mL (0.000-0.055) Total Protein 6.3 g/dL (6.4-8.2) Albumin 3.6 g/dL (3.4-5.0) Albumin/Globulin Ratio 1.3 (1.0-1.7) Nasal Screen MRSA (PCR) Negative (Negative) Medications Current Medications Iohexol (Omnipaque 300 Mg/ml) 75 ml 1X ONCE IV Last administered on t 17:41; Start 08/08/17 at 16:45; Stop 08/08/17 at 16:46; Status DC Info (Do NOT chart on this entry -- for MONITORING) 1 each PRN DAILY PRN MC SEE COMMENTS; Start 08/08/17 at 16:45; Stop 08/10/17 at 16:44 Ondansetron HCl (Zofran) 4 mg PRN Q8HRS PRN IV NAUSEA/VOMITING; Start at 20:00; Stop 08/09/17 at 19:59; Status DC Fentanyl Citrate (Fentanyl 2ml Vial) 50 mcg PRN Q1HR PRN IV PAIN; Start at 20:00; Stop 08/09/17 at 19:59; Status DC Sodium Chloride 1,000 ml @ 100 mls/hr Q10H IV Last administered on 08/09/17t 06:49; Start 08/08/17 at 19:47; Stop 08/09/17 at 08:50; Status DC Amlodipine Besylate (Norvasc) 5 mg DAILY PO Last administered on 08/10/17 10: 07; Start 08/09/17 at 09:30 Aspirin (Jose Aspirin) 325 mg DAILY PO Last administered on 08/10/17 10:07; Start 08/09/17 at 09:30 Atorvastatin Calcium (Lipitor) 20 mg HS PO Last administered on 08/09/17 20: 54; Start 08/09/17 at 21:00 Carvedilol (Coreg) 25 mg BIDWMEALS PO Last administered on 08/10/17 10:12; Start 08/09/17 at 09:30 Guaifenesin (Robitussin Dm) 10 ml PRN Q6HRS PRN PO COUGH; Start 08/09/17 at 09 :00 Enoxaparin Sodium (Lovenox Per Pharmacy Prophylaxis Dosing) 1 each PRN DAILY PRN MC SEE COMMENTS; Start 08/09/17 at 09:00 Potassium Chloride/Dextrose/ Sod Cl 1,000 ml @ 100 mls/hr Q10H IV Last administered on 08/09/17 19:30; Start 08/09/17 at 09:30 Enoxaparin Sodium (Lovenox 40mg Syringe) 40 mg Q24H SQ Last administered on 10:08; Start 08/09/17 at 09:00 Prednisone (Prednisone) 100 mg DAILY PO Last administered on 08/10/17 10:08; Start 08/09/17 at 11:00 Active Scripts Active Reported Amlodipine Besylate 5 Mg Tablet 5 Mg PO DAILY Aspirin 325 Mg Tablet 1 Tab PO DAILY Atorvastatin Calcium 20 Mg Tablet 1 Tab PO HS Robitussin Cough-Cold Cf Liq (Guaifenesin/D-Methorphan Hb/Pe) 118 Ml Liquid 10 Ml PO Q4HRS PRN Ramipril 10 Mg Capsule 10 Mg PO DAILY Milk Of Magnesia (Magnesium Hydroxide) 400 Mg/5 Ml Oral.susp 400 Mg PO DAILY PRN Dulcolax (Bisacodyl) 10 Mg Supp.rect 10 Mg RC PRN Coreg (Carvedilol) 12.5 Mg Tablet 25 Mg PO BID Vitals/I & O Vital Sign - Last 24 Hours 08/09/17 08/09/17 08/09/17 08/09/17 15:38 17:28 19:00 20:00 Temp 98.0 97.9 98.0 97.9 Pulse 86 86 71 Resp 19 14 B/P (MAP) 128/74 (92) 128/74 120/80 (93) Pulse Ox 96 96 O2 Delivery Room Air Room Air Room Air 08/09/17 08/10/17 08/10/17 08/10/17 23:00 03:00 07:00 08:00 Temp 96.2 97.9 97.5 96.2 97.9 97.5 Pulse 73 72 63 Resp 17 18 20 B/P (MAP) 131/71 (91) 116/68 (84) 117/62 (80) Pulse Ox 98 96 93 O2 Delivery Room Air Room Air Room Air Room Air 08/10/17 08/10/17 08/10/17 10:07 10:12 11:00 Temp 98.1 98.1 Pulse 63 63 61 Resp 20 B/P (MAP) 117/62 117/62 121/70 (87) Pulse Ox 97 O2 Delivery Room Air Intake and Output 08/09/17 08/09/17 08/10/17 15:00 23:00 07:00 Intake Total 240 ml 120 ml Balance 240 ml 120 ml DAWSON BLANCO MD Aug 10, 2017 13:34
[2017-08-10 15:00] VITALS: BP 129/67
[2017-08-10 19:00] VITALS: BP 127/65
[2017-08-10] MEDS: ATORVASTATIN CALCIUM 20 MG TABLET PO SCH (22:26)
[2017-08-10 23:00] VITALS: BP 143/71
[2017-08-11 03:00] VITALS: BP 155/82
[2017-08-11 07:00] VITALS: BP 149/79
--- NOTE | 2017-08-11 08:51 | PDOC3 ---
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 Dickey is a 82 old admit with globus sensation, neck fullness, difficulty swallowing, R sided weakness, functional decline. for NEW LYMPHOMA dx, R-CHOP chemo offered by Onc service, pt declined, prefer to use [facility] agency. may need 24 hr nursing care, has been in [facility]-term [facility] Discharge Information Condition at Discharge: Stable Follow Up: As Needed Disposition/Orders: D/C to Another Facility Scheduled Amlodipine Besylate (Amlodipine Besylate), 5 MG PO DAILY, (Reported) Aspirin (Aspirin), 1 TAB PO DAILY, (Reported) Atorvastatin Calcium (Atorvastatin Calcium), 1 TAB PO HS, (Reported) Carvedilol (Coreg), 25 MG PO BID, (Reported) Ramipril (Ramipril), 10 MG PO DAILY, (Reported) Scheduled PRN Bisacodyl (Dulcolax), 10 MG RC, (Reported) Guaifenesin/D-Methorphan Hb/Pe (Robitussin Cough-Cold Cf Liq), 10 ML PO Q4HRS PRN, (Reported) Magnesium Hydroxide (Milk Of Magnesia), 400 MG PO DAILY PRN, (Reported) DAWSON BLANCO MD Aug 11, 2017 08:51
--- NOTE | 2017-08-11 08:53 | PDOC ---
PROGRESS NOTES Subjective Subjective HPI - f/u of stage III DLBCL, ROS - no fever Objective Objective Vital Signs Date Time Temp Pulse Resp B/P (MAP) Pulse Ox O2 Delivery O2 Flow Rate FiO2 08/11/17 07:00 97.4 67 18 149/79 (102) 95 Room Air 97.4 Intake and Output 08/11/17 07:00 Intake Total 2200 ml Balance 2200 ml Intake Oral 2200 ml # Voids 8 Physical Exam Heart: Normal S1, Normal S2 General: Alert, Oriented X3 Lungs: Clear to auscultation Assessment Assessment Problems Medical Problems: (1) Dysphagia Status: Acute (2) Dyspnea Status: Acute (3) Lymphoma of lymph nodes of neck Status: Acute Assessment/Plan 82 yo M c 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 Due to clinical status and pt wishes, he has chosen to not pursue therapy, and look to hospice approach with [facility] agency. Hence I will d/c prednisone. I d/w Dr Salvador and RN Comment Review of Relevant I have reviewed the following items bjorn (where applicable) has been applied. Medications Current Medications Iohexol (Omnipaque 300 Mg/ml) 75 ml 1X ONCE IV Last administered on 17:41; Start 08/08/17 at 16:45; Stop 08/08/17 at 16:46; Status DC Info (Do NOT chart on this entry -- for MONITORING) 1 each PRN DAILY PRN MC SEE COMMENTS; Start 08/08/17 at 16:45; Stop 08/10/17 at 16:44; Status DC Ondansetron HCl (Zofran) 4 mg PRN Q8HRS PRN IV NAUSEA/VOMITING; Start at 20:00; Stop 08/09/17 at 19:59; Status DC Fentanyl Citrate (Fentanyl 2ml Vial) 50 mcg PRN Q1HR PRN IV PAIN; Start at 20:00; Stop 08/09/17 at 19:59; Status DC Sodium Chloride 1,000 ml @ 100 mls/hr Q10H IV Last administered on 08/09/17t 06:49; Start 08/08/17 at 19:47; Stop 08/09/17 at 08:50; Status DC Amlodipine Besylate (Norvasc) 5 mg DAILY PO Last administered on 08/10/17 10: 07; Start 08/09/17 at 09:30 Aspirin (Jose Aspirin) 325 mg DAILY PO Last administered on 08/10/17 10:07; Start 08/09/17 at 09:30 Atorvastatin Calcium (Lipitor) 20 mg HS PO Last administered on 08/10/17 22: 26; Start 08/09/17 at 21:00 Carvedilol (Coreg) 25 mg BIDWMEALS PO Last administered on 08/10/17 16:57; Start 08/09/17 at 09:30 Guaifenesin (Robitussin Dm) 10 ml PRN Q6HRS PRN PO COUGH; Start 08/09/17 at 09 :00 Enoxaparin Sodium (Lovenox Per Pharmacy Prophylaxis Dosing) 1 each PRN DAILY PRN MC SEE COMMENTS; Start 08/09/17 at 09:00 Potassium Chloride/Dextrose/ Sod Cl 1,000 ml @ 100 mls/hr Q10H IV Last administered on 08/10/17 22:27; Start 08/09/17 at 09:30 Enoxaparin Sodium (Lovenox 40mg Syringe) 40 mg Q24H SQ Last administered on 10:08; Start 08/09/17 at 09:00 Prednisone (Prednisone) 100 mg DAILY PO Last administered on 08/10/17 10:08; Start 08/09/17 at 11:00 Active Scripts Active Reported Amlodipine Besylate 5 Mg Tablet 5 Mg PO DAILY Aspirin 325 Mg Tablet 1 Tab PO DAILY Atorvastatin Calcium 20 Mg Tablet 1 Tab PO HS Robitussin Cough-Cold Cf Liq (Guaifenesin/D-Methorphan Hb/Pe) 118 Ml Liquid 10 Ml PO Q4HRS PRN Ramipril 10 Mg Capsule 10 Mg PO DAILY Milk Of Magnesia (Magnesium Hydroxide) 400 Mg/5 Ml Oral.susp 400 Mg PO DAILY PRN Dulcolax (Bisacodyl) 10 Mg Supp.rect 10 Mg RC PRN Coreg (Carvedilol) 12.5 Mg Tablet 25 Mg PO BID Vitals/I & O Vital Sign - Last 24 Hours 08/10/17 08/10/17 08/10/17 08/10/17 10:07 10:12 11:00 15:00 Temp 98.1 98.1 98.1 98.1 Pulse 63 63 61 65 Resp 20 19 B/P (MAP) 117/62 117/62 121/70 (87) 129/67 (87) Pulse Ox 97 100 O2 Delivery Room Air Room Air 08/10/17 08/10/17 08/10/17 08/10/17 16:57 19:00 20:00 23:00 Temp 97.9 96.6 97.9 96.6 Pulse 65 61 64 Resp 20 20 B/P (MAP) 129/67 127/65 (85) 143/71 (95) Pulse Ox 96 96 O2 Delivery Room Air Room Air Room Air 08/11/17 08/11/17 03:00 07:00 Temp 97.5 97.4 97.5 97.4 Pulse 66 67 Resp 20 18 B/P (MAP) 155/82 (106) 149/79 (102) Pulse Ox 97 95 O2 Delivery Room Air Room Air Intake and Output 08/10/17 08/10/17 08/11/17 15:00 23:00 07:00 Intake Total 750 ml 1300 ml 150 ml Balance 750 ml 1300 ml 150 ml PITO ROSENBERG MD Aug 11, 2017 08:53
[2017-08-11] MEDS: POTASSIUM CL 20MEQ D5-0.45NACL 1,000 ML IV SCH ×2 (09:56→20:44)
[2017-08-11] MEDS: CARVEDILOL 12.5 MG TABLET. PO SCH ×2 (10:15→17:15)
[2017-08-11] MEDS: ASPIRIN 325 MG TABLET PO SCH (10:15)
[2017-08-11] MEDS: ENOXAPARIN 40 MG/0.4 ML SYRINGE. SQ SCH (10:16)
[2017-08-11] MEDS: amLODIPine BESYLATE 5 MG TABLET PO SCH (10:16)
--- NOTE | 2017-08-11 10:40 | PDOC2 ---
PALLIATIVE CARE Palliative Care Note Palliative Care Consult requested by Dr. Grangre to address hospice plan of care. Patient alert. Sitting up in chair. Completed breakfast. Information obtained from medical records, patient and son Spencer Diagnosis; Lymphoma (DLBCL) Stage III.; Dementia, Dysphagia--improved: Dyspnea --improved. PMH: CVA Chemotherapy has been discussed. Functional decline. Decision has been made not to do chemotherapy. Patient has been a resident at [facility]. Will now need 17/[address] Packer has spoke with son and daughter. Son Spencer is DPOA. Spoke with Spencer. He is aware of medical condition and is currently looking for [facility]. He is aware that room and board is private pay. Plan: [facility] with [facility] when arrangements made DNR/DNI JEANNIE SANTOS Aug 11, 2017 10:40
[2017-08-11 11:00] VITALS: BP 162/90
[2017-08-11 15:00] VITALS: BP 136/70
[2017-08-11 19:00] VITALS: BP 118/70
[2017-08-11] MEDS: ATORVASTATIN CALCIUM 20 MG TABLET PO SCH (20:44)
[2017-08-11 23:09] VITALS: BP 117/72
[2017-08-12 03:00] VITALS: BP 133/78
[2017-08-12 07:04] VITALS: BP 152/78
[2017-08-12] MEDS: ASPIRIN 325 MG TABLET PO SCH (08:49)
[2017-08-12] MEDS: amLODIPine BESYLATE 5 MG TABLET PO SCH (08:49)
[2017-08-12] MEDS: ENOXAPARIN 40 MG/0.4 ML SYRINGE. SQ SCH (08:50)
[2017-08-12] MEDS: CARVEDILOL 12.5 MG TABLET. PO SCH (08:50)
--- NOTE | 2017-08-12 08:58 | PDOC ---
PROGRESS NOTES Subjective Subjective HPI - f/u of high-risk stage III NHL/DLBCL ROS - no CP Objective Objective Vital Signs Date Time Temp Pulse Resp B/P (MAP) Pulse Ox O2 Delivery O2 Flow Rate FiO2 08/12/17 08:50 62 152/78 08/12/17 08:00 Room Air 08/12/17 07:04 97.5 19 97 97.5 Intake and Output 08/12/17 07:00 Intake Total 900 ml Balance 900 ml Intake Oral 900 ml # Voids 9 Physical Exam Heart: Normal S1, Normal S2 General: Alert, Oriented X3 Lungs: Clear to auscultation Psych/Mental Status: Mental status NL Assessment Assessment Problems Medical Problems: (1) Dysphagia Status: Acute (2) Dyspnea Status: Acute (3) Lymphoma of lymph nodes of neck Status: Acute Assessment/Plan 82 yo M c newly dx high-risk stage III NHL/DLBCL, prev strokes that have left him with R sided weakness, functional decline. Due to clinical status and pt wishes, he has chosen to not pursue therapy, and look to hospice approach with [facility] agency. Hence I d/c'ed prednisone 08/11/17. I d/w RN I d/w pt's son I d/w Pat Comment Review of Relevant I have reviewed the following items bjorn (where applicable) has been applied. Medications Current Medications Iohexol (Omnipaque 300 Mg/ml) 75 ml 1X ONCE IV Last administered on 17:41; Start 08/08/17 at 16:45; Stop 08/08/17 at 16:46; Status DC Info (Do NOT chart on this entry -- for MONITORING) 1 each PRN DAILY PRN MC SEE COMMENTS; Start 08/08/17 at 16:45; Stop 08/10/17 at 16:44; Status DC Ondansetron HCl (Zofran) 4 mg PRN Q8HRS PRN IV NAUSEA/VOMITING; Start at 20:00; Stop 08/09/17 at 19:59; Status DC Fentanyl Citrate (Fentanyl 2ml Vial) 50 mcg PRN Q1HR PRN IV PAIN; Start at 20:00; Stop 08/09/17 at 19:59; Status DC Sodium Chloride 1,000 ml @ 100 mls/hr Q10H IV Last administered on 08/09/17 06:49; Start 08/08/17 at 19:47; Stop 08/09/17 at 08:50; Status DC Amlodipine Besylate (Norvasc) 5 mg DAILY PO Last administered on 08/12/17 08: 49; Start 08/09/17 at 09:30 Aspirin (Jose Aspirin) 325 mg DAILY PO Last administered on 08/12/17 08:49; Start 08/09/17 at 09:30 Atorvastatin Calcium (Lipitor) 20 mg HS PO Last administered on 08/11/17 20: 44; Start 08/09/17 at 21:00 Carvedilol (Coreg) 25 mg BIDWMEALS PO Last administered on 08/12/17 08:50; Start 08/09/17 at 09:30 Guaifenesin (Robitussin Dm) 10 ml PRN Q6HRS PRN PO COUGH; Start 08/09/17 at 09 :00 Enoxaparin Sodium (Lovenox Per Pharmacy Prophylaxis Dosing) 1 each PRN DAILY PRN MC SEE COMMENTS; Start 08/09/17 at 09:00 Potassium Chloride/Dextrose/ Sod Cl 1,000 ml @ 100 mls/hr Q10H IV Last administered on 08/11/17 09:56; Start 08/09/17 at 09:30 Enoxaparin Sodium (Lovenox 40mg Syringe) 40 mg Q24H SQ Last administered on 08:50; Start 08/09/17 at 09:00 Prednisone (Prednisone) 100 mg DAILY PO Last administered on 08/10/17 10:08; Start 08/09/17 at 11:00; Stop 08/11/17 at 08:51; Status DC Active Scripts Active Reported Amlodipine Besylate 5 Mg Tablet 5 Mg PO DAILY Aspirin 325 Mg Tablet 1 Tab PO DAILY Atorvastatin Calcium 20 Mg Tablet 1 Tab PO HS Robitussin Cough-Cold Cf Liq (Guaifenesin/D-Methorphan Hb/Pe) 118 Ml Liquid 10 Ml PO Q4HRS PRN Ramipril 10 Mg Capsule 10 Mg PO DAILY Milk Of Magnesia (Magnesium Hydroxide) 400 Mg/5 Ml Oral.susp 400 Mg PO DAILY PRN Dulcolax (Bisacodyl) 10 Mg Supp.rect 10 Mg RC PRN Coreg (Carvedilol) 12.5 Mg Tablet 25 Mg PO BID Vitals/I & O Vital Sign - Last 24 Hours 08/11/17 08/11/17 08/11/17 08/11/17 10:15 10:16 11:00 15:00 Temp 97.5 97.6 97.5 97.6 Pulse 67 67 67 61 Resp 18 18 B/P (MAP) 149/79 149/79 162/90 (114) 136/70 (92) Pulse Ox 96 97 O2 Delivery Room Air Room Air 08/11/17 08/11/17 08/11/17 08/11/17 17:15 19:00 20:07 23:09 Temp 97.5 97.7 97.5 97.7 Pulse 61 57 62 Resp B/P (MAP) 136/70 118/70 (86) 117/72 (87) Pulse Ox 98 98 O2 Delivery Room Air Room Air Room Air 08/12/17 08/12/17 08/12/17 08/12/17 03:00 07:04 08:00 08:49 Temp 97.6 97.5 97.6 97.5 Pulse 60 62 62 Resp 18 19 B/P (MAP) 133/78 (96) 152/78 (102) 152/78 Pulse Ox 98 97 O2 Delivery Room Air Room Air Room Air 08/12/17 08:50 Pulse 62 B/P (MAP) 152/78 Intake and Output 08/11/17 08/11/17 08/12/17 15:00 23:00 07:00 Intake Total 500 ml 400 ml Balance 500 ml 400 ml PITO ROSENBERG MD Aug 12, 2017 08:58
[2017-08-12 10:41] VITALS: BP 100/78
--- NOTE | 2017-08-12 11:44 | PDOC ---
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 Dementia Weakness HTN Hyperlipidemia History of Present Illness History of Present Illness Patient was sitting upright in chair Discussed with son Patient denied having chemo regimen suggested by oncology Patient wants to be discharged to hospice care using [facility] VSS Vitals Vitals Vital Signs Date Time Temp Pulse Resp B/P (MAP) Pulse Ox O2 Delivery O2 Flow Rate FiO2 08/12/17 10:41 98.3 61 17 100/78 (85) 96 Room Air 98.3 Physical Exam General: Alert, Oriented X3, Cooperative Heart: Normal S1, Normal S2 Lungs: Clear Abdomen: Normal bowel sounds, No tenderness Extremities: No clubbing, No cyanosis Skin: No rashes Review of Systems Review of Systems Denies dyspnea or SOA Denies abdominal pain Assessment and Plan Assessmemt and Plan Problems Medical Problems: (1) Dysphagia Status: Acute (2) Dyspnea Status: Acute (3) Lymphoma of lymph nodes of neck Status: Acute Assessment Dysphagia Lymphoma, 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 Medications Current Medications Iohexol (Omnipaque 300 Mg/ml) 75 ml 1X ONCE IV Last administered on 17:41; Start 08/08/17 at 16:45; Stop 08/08/17 at 16:46; Status DC Info (Do NOT chart on this entry -- for MONITORING) 1 each PRN DAILY PRN MC SEE COMMENTS; Start 08/08/17 at 16:45; Stop 08/10/17 at 16:44; Status DC Ondansetron HCl (Zofran) 4 mg PRN Q8HRS PRN IV NAUSEA/VOMITING; Start at 20:00; Stop 08/09/17 at 19:59; Status DC Fentanyl Citrate (Fentanyl 2ml Vial) 50 mcg PRN Q1HR PRN IV PAIN; Start at 20:00; Stop 08/09/17 at 19:59; Status DC Sodium Chloride 1,000 ml @ 100 mls/hr Q10H IV Last administered on 08/09/17 06:49; Start 08/08/17 at 19:47; Stop 08/09/17 at 08:50; Status DC Amlodipine Besylate (Norvasc) 5 mg DAILY PO Last administered on 08/12/17 08: 49; Start 08/09/17 at 09:30 Aspirin (Jose Aspirin) 325 mg DAILY PO Last administered on 08/12/17 08:49; Start 08/09/17 at 09:30 Atorvastatin Calcium (Lipitor) 20 mg HS PO Last administered on 08/11/17 20: 44; Start 08/09/17 at 21:00 Carvedilol (Coreg) 25 mg BIDWMEALS PO Last administered on 08/12/17 08:50; Start 08/09/17 at 09:30 Guaifenesin (Robitussin Dm) 10 ml PRN Q6HRS PRN PO COUGH; Start 08/09/17 at 09 :00 Enoxaparin Sodium (Lovenox Per Pharmacy Prophylaxis Dosing) 1 each PRN DAILY PRN MC SEE COMMENTS; Start 08/09/17 at 09:00 Potassium Chloride/Dextrose/ Sod Cl 1,000 ml @ 100 mls/hr Q10H IV Last administered on 08/11/17 09:56; Start 08/09/17 at 09:30 Enoxaparin Sodium (Lovenox 40mg Syringe) 40 mg Q24H SQ Last administered on 08:50; Start 08/09/17 at 09:00 Prednisone (Prednisone) 100 mg DAILY PO Last administered on 08/10/17 10:08; Start 08/09/17 at 11:00; Stop 08/11/17 at 08:51; Status DC Active Scripts Active Reported Amlodipine Besylate 5 Mg Tablet 5 Mg PO DAILY Aspirin 325 Mg Tablet 1 Tab PO DAILY Atorvastatin Calcium 20 Mg Tablet 1 Tab PO HS Robitussin Cough-Cold Cf Liq (Guaifenesin/D-Methorphan Hb/Pe) 118 Ml Liquid 10 Ml PO Q4HRS PRN Ramipril 10 Mg Capsule 10 Mg PO DAILY Milk Of Magnesia (Magnesium Hydroxide) 400 Mg/5 Ml Oral.susp 400 Mg PO DAILY PRN Dulcolax (Bisacodyl) 10 Mg Supp.rect 10 Mg RC PRN Coreg (Carvedilol) 12.5 Mg Tablet 25 Mg PO BID Vitals/I & O Vital Sign - Last 24 Hours 1208/11/17 08/11/17 08/11/17 15:00 17:15 19:00 20:07 Temp 97.6 97.5 97.6 97.5 Pulse 61 61 57 Resp 18 18 B/P (MAP) 136/70 (92) 136/70 118/70 (86) Pulse Ox 97 98 O2 Delivery Room Air Room Air Room Air 08/11/17 08/12/17 08/12/17 08/12/17 23:09 03:00 07:04 08:00 Temp 97.7 97.6 97.5 97.7 97.6 97.5 Pulse 62 60 62 Resp 17 18 19 B/P (MAP) 117/72 (87) 133/78 (96) 152/78 (102) Pulse Ox 98 98 97 O2 Delivery Room Air Room Air Room Air Room Air 08/12/17 08/12/17 08/12/17 08:49 08:50 10:41 Temp 98.3 98.3 Pulse 62 62 61 Resp 17 B/P (MAP) 152/78 152/78 100/78 (85) Pulse Ox 96 O2 Delivery Room Air Intake and Output 08/11/17 08/11/17 08/12/17 15:00 23:00 07:00 Intake Total 500 ml 400 ml Balance 500 ml 400 ml ANAMIKA SOTOMAYOR III DO Aug 12, 2017 11:44
--- NOTE | 2017-08-21 17:16 | DS ---
DATE OF DISCHARGE: 08/12/2017 ADMISSION DIAGNOSES: Shortness of breath and pneumonia. DISCHARGE DIAGNOSIS: Resolving pneumonia. HOSPITAL COURSE: The patient is a pleasant 82-year-old male presented with shortness of breath who has had pneumonia. He had a prior history of B-cell lymphoma. We did breathing treatments, oxygen, steroids. We consulted palliative care. [facility] DISPOSITION: Hospice. ACTIVITY: As tolerated. DIET: Low sodium. MEDICATIONS: Please see MRAD. TOTAL TIME ON DISCHARGE: 38 minutes. ANAMIKA SOTOMAYOR DO DR: ALEXANDRA/shaylee JOB#: [id number] / [id number]
== END 2017-08-12 14:05 | disposition hospice, home (50) | DRG 841 ==
LOC: ER 15:20 → ED HOLD 19:38 → 6 SOUTH 22:49
PROVIDERS: ADMIT Internal Medicine; ATTEND Internal Medicine
PROC: 0JB53ZX Excision of Left Neck Subcutaneous Tissue and Fascia, Percutaneous Approach, Diagnostic (ICD-10-PCS; principal; 2017-08-08)
DX: C83.30 Diffuse large B-cell lymphoma, unspecified site (principal); E87.1 Hypo-osmolality and hyponatremia; F03.90 Unspecified dementia, unspecified severity, without behavioral disturbance, psychotic disturbance, mood disturbance, and anxiety; R13.10 Dysphagia, unspecified; E78.5 Hyperlipidemia, unspecified; H54.61 Unqualified visual loss, right eye, normal vision left eye; I10 Essential (primary) hypertension; N40.0 Benign prostatic hyperplasia without lower urinary tract symptoms; Z51.5 Encounter for palliative care; Z66 Do not resuscitate; Z86.73 Personal history of transient ischemic attack (TIA), and cerebral infarction without residual deficits
CPT/HCPCS: 36415; 70490; 71275; 78815; 80048; 80053; 84484; 85025; 87641; 93005; A9552; J1650; J7030; J7512; Q9967; 92610; 97530; 99285-25